=== PATIENT | female | born 1970 | race Hispanic/Latino ===

== ENCOUNTER → 2024-04-12 | Outpatient (REF) | payer OTHER | LOC: RAD 13:19 | PROVIDERS: ATTEND Family Medicine | DX: M54.2 Cervicalgia (principal); M25.562 Pain in left knee | CPT/HCPCS: 72050 ==

== ENCOUNTER → 2024-04-26 | Outpatient (REF) | payer OTHER | LOC: MAMMO 10:30 | PROVIDERS: ATTEND Family Medicine | DX: Z12.31 Encounter for screening mammogram for malignant neoplasm of breast (principal); M85.88 Other specified disorders of bone density and structure, other site | CPT/HCPCS: 77067; 77080 ==